=== PATIENT | female | born 1990 | race Caucasian/White ===

== ENCOUNTER 2016-05-06 19:57 | Inpatient (IN) ==
[2016-05-06] MEDS ORDERED: Naloxone 0.4 MG/ML INJ IVP PRN (20:00)
[2016-05-06] MEDS ORDERED: Ondansetron 4 MG/2 ML VIAL IVP PRN (20:00)
[2016-05-06] MEDS ORDERED: Metoclopramide 10 MG/2 ML VIAL IVP PRN (20:00)
[2016-05-06] MEDS ORDERED: Famotidine 20 MG/2 ML VIAL IVP PRN (20:00)
[2016-05-06] MEDS ORDERED: Ringers Solution, Lactated 1,000 ML IVC SCH (20:00)
[2016-05-06] MEDS ORDERED: Penicillin G Potassium 5,000,000 UNIT in D5% in Water (Mini-Bag+) 100 ML IVPB ONE (20:19)
[2016-05-06 21:22] LABS: Basophils # 0.1 K/mcL (0.0-0.2); Basophils % 0.4 %; Eosinophils # 0.2 K/mcL (0.0-0.6); Eosinophils % 1.3 %; Hematocrit 34.8 % (35.3-44.9); Hemoglobin 11.6 g/dL (11.5-15.4); Immature Granulocytes % 0.7 % (0-4); Lymphocytes # 4.8 K/mcL (0.6-4.6); Lymphocytes % 37.3 %; Mean Corpuscular HGB Conc 33.3 g/dL (31.6-35.5); Mean Corpuscular Hemoglobin 31.7 pg (28.0-33.3); Mean Corpuscular Volume 95.1 fL (83.0-100.0); Mean Platelet Volume 10.4 fL (9.4-12.4); Monocytes # 1.1 K/mcL (0.0-1.3); Monocytes % 8.4 %; Neutrophils # 6.6 K/mcL (1.6-8.9); Nucleated Red Blood Cells 0.2 /100 WBC (0); Platelet Count 362 K/mcL (140-400); Red Blood Count 3.66 M/mcL (3.82-4.97); Segmented Neutrophils % 51.9 %
--- NOTE | 2016-05-06 21:28 | Anesthesia Evaluation PreOp ---
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 Any Significant HX Other Medical History: Denies Any Significant HX, Other (ADHD) Anesthesia History: No Prior Anesthetic Complications, Past Anesthesia (appe, tonsil, sinus, uterine polyps, ovarian cyst, ectopic) : Yes (37, ) Alcohol Use: none Drug use: none Medications and Allergies Edb361/Iron Fumarate/FA/Dss [ 19 Tablet] 1 each PO DAILY 12/29/15 [ History] Dextroamphetamine/Amphetamine [Adderall 30 mg Tablet] 30 mg PO DAILY 03/18/16 [ History] Allergies ethinyl estradiol [From NuvaRing] Adverse Reaction (Verified 05/06/16 18:48) See Comments etonogestrel [From NuvaRing] Adverse Reaction (Verified 05/06/16 18:48) See Comments - Meds/Allergy Pre-op Review Medications Reviewed: Yes Allergies Reviewed: Yes Beta Blockers on Current Med List: No Anesthesia Results - Labs 05/06/16 19:46 Anesthesia Exam O2 Sat Height 1.73 m Weight 83.5 kg bp 119/68 hr 90 rr 18 Height: 68 Weight: 83 - HEENT Pupil (Motor): Pupils equal Mallampati: I Teeth: Normal Oral Opening: Greater than 3 - [employer] ELECTRICAL ENGINEER LOC: Oriented [employer] ELECT[employer]ICAL ENGINEER Motor: Normal RUE, Normal LUE, Normal RLE, Normal LLE, Normal Face [employer]ER Sensory: Normal: RUE, LUE, RLE, LLE, Face - Cardiac Rhythm: Regular Murmur: None JVD: No Carotid Bruit: No - Pulmonary Breath Sounds: bilateral Clear Respiratory Effort: Symmetrical Anesthesia Assess/Plan ASA Score: 2 Modified [place] Scale for Level of Consciousness: Cooperative, oriented, and tranquil Anesthetic Plan: Regional Monitoring Plan: Standard Monitors
[2016-05-06] MEDS ORDERED: *HR* Nalbuphine 20 MG/ML AMPUL IVP PRN (22:39)
--- NOTE | 2016-05-06 22:53 | OB/GYN History & Physical ---
Date of Encounter: 05/06/16 Time of Encounter: 22:50 Assessment and Plan (1) 38 weeks gestation of Current visit: No Status: Acute Pt presents with contractions and while undergoing observation had prolonged decel that responded to our measures. Will admit and proceed with labor. She is GBBS pos so will begin atbs cont obs and perform AROM after second dose of atb's. History of Present Illness Chief complaint: uc's HPI: Ms. Davies is a 26 year old female [id number] 1 female presents with contractions. This has been complicated by Restless leg syndrome and has been sleeping very little. She also has h/o ADD and anxiety. She smokes < 5 cigs/day. During observation she had prolonged decel to 60's for 6-7 min. She was given IVF, o2 and repositioned. Her cvx was 5/90/-2. This resolved spontaneously. Past Med Surg Social Fam HX - Past Medical History Medical history: kidney stones Psychiatric history: anxiety, depression - Past Surgical History Surgical History: appendectomy, other - Social History Smoking Status: Never smoker Smokeless Tobacco Status: No Alcohol use: none Drug use: none - Family History Mother Adopted: No Family Member Ethnicity: Non- Living Status: Still Living Hx Family Cardiac Disorders: No Hx Family Respiratory Disorders: No Hx Family Cancer: No Hx Family GI Disorders: No Hx Family Endocrine Disorder: No Hx Family Musculoskeletal Disorders: Yes (DDD) Hx Family Neuromuscular Disorders: No Hx Family Neurologic Disorders: No Hx Family HEENT Disorders: No Hx Family Autoimmune Disorders: No Obstetrical History - Pregnancies : 6 Para: 1 Ab's: 2 (ectopic 1) Medications and Allergies Unc869/Iron Fumarate/FA/Dss [ 19 Tablet] 1 each PO DAILY 12/29/15 [ History] Dextroamphetamine/Amphetamine [Adderall 30 mg Tablet] 30 mg PO DAILY 03/18/16 [ History] Allergies ethinyl estradiol [From NuvaRing] Adverse Reaction (Verified 05/06/16 18:48) See Comments etonogestrel [From NuvaRing] Adverse Reaction (Verified 05/06/16 18:48) See Comments Exam - Constitutional Constitutional: well developed - HEENT HEENT: EOMI, PERRL - Neck Neck exam: full ROM - Lungs Respiratory exam: CTAB - Cardiovascular Cardiovascular exam: RRR - Abdomen Abdomen: Present: gravid, non tender - Cervix Dilation: 5 Effacement: 80 Station: -1 - Uterus Uterus exam: Present: enlarged Results Result Diagrams: 05/06/16 19:46 Abnormal lab results WBC 12.8 K/mcL (4.3-11.1) H 05/06/16 19:46 RBC 3.66 M/mcL (3.82-4.97) L 05/06/16 19:46 Hct 34.8 % (35.3-44.9) L 05/06/16 19:46 Lymphocytes # 4.8 K/mcL (0.6-4.6) H 05/06/16 19:46 Nucleated RBCs/100 WBC 0.2 /100 WBC (0) H 05/06/16 19:46 All other labs normal. - VTE Reasons for not Prescribing Prophylaxis: Treatment not Indicated - Low risk for VTE
[2016-05-07] MEDS ORDERED: Penicillin G Potassium 2,500,000 UNIT in D5% in Water 100 ML IVPB SCH (01:00)
--- NOTE | 2016-05-07 03:09 | OB Labor Progress Note ---
Date of Encounter: 05/07/16 Time of Encounter: 03:07 Labor Progress Note - Subjective Subjective: pt doing well, c/o moderate intensity uc's - Cervix Cervix: 5/80/-2 - Heart Tones Heart Tones: RNST - Wrigley Wrigley: uc's q 3 - Interventions Interventions: AROM clear - Plan Plan: Expect
[2016-05-07] MEDS ORDERED: *HR* FentaNYL (PF) 100 MCG/2 ML VIAL ONE ×2 (05:54→08:00)
[2016-05-07] MEDS ORDERED: Epidural Premix (fent/bupiv) 110 ML EP ONE (05:54)
[2016-05-07] MEDS ORDERED: Bupivacaine-MPF 0.25% 10 ML VIAL ONE ×2 (05:54→08:00)
[2016-05-07] MEDS ORDERED: *HR* FentaNYL (PF) 100 MCG/2 ML VIAL EP ONE (06:18)
[2016-05-07] MEDS ORDERED: EPHEDrine 50 MG/ML VIAL IVP PRN (06:18)
[2016-05-07] MEDS ORDERED: Bupivacaine-MPF 0.25% 10 ML VIAL EP ONE (06:18)
--- NOTE | 2016-05-07 06:22 | Anesthesia Procedures ---
Date of Encounter: 05/07/16 Time of Encounter: 05:50 Procedures: Anesthesia - Epidural/Spinal Patient ID/Chart reviewed: Yes Patient examined: Yes OB Eval: Gestational age: 37 OB Eval: Contractions: Non-stressed pattern Consent Obtained: Yes Supplemental Oxygen: None/Room Air Site Prep: Aseptic Technique, 0.5% Chlorhexidine/Alcohol Patient position: upright Local Anesthetic: Lidocaine 1% Amount of Local Anesthetic used: 3 Touhy Needle Gauge: 18 Touhy Needle Depth (cm): 5 Catheter Depth at Skin (cm): 11 Test Dose (1.5% Lido + Epi): Volume given (mls): 3 Test Dose Result: Negative Loading Dose: 0.25% Marcaine (mls): 5 Loading Dose: Fentanyl (mcg): 100 Loading Dose: Other: 3ml nss Loading Dose Administered: Thru Touhy Needle Infusion Med: 0.125% Bupivacaine w/ 2 mcg/ml Fentanyl Infusion Rate (mls/hr): [address]: Tegaderm Interspace Used: L2-L3 Loss of Resistance (MARIANNA): Yes Blood: No CSF: No Paresthesia: No Procedure: strict asepsis, no change in fhr Vitals + FHT's: 127/76 123/65 112/67
[2016-05-07] MEDS ORDERED: Epidural Premix (fent/bupiv) 110 ML EP SCH (06:30)
[2016-05-07] MEDS: Oxytocin 20 units/ LR 1000 mL 20 UNIT/1,000 ML BAG IVC SCH ×2 (08:42→13:43)
--- NOTE | 2016-05-07 09:08 | Anesthesia Progress Note ---
Date of Encounter: 05/07/16 Time of Encounter: 08:10 Anesthesia Note - Note Note: 05/07/16 09:06 Called to LDR 10 for c/o pain with contractions, rates 10/10/ Epidural functioning and no evidence of migration. Dosed with 8ml 0.25% bupivacaine and 100mcg fentanyl in 3 divided doses. Patient tolerated procedure well and vss.
[2016-05-07] MEDS ORDERED: Ibuprofen 600 MG TABLET PO PRN (13:52)
[2016-05-07] MEDS ORDERED: *HR* HYDROcodone/Acet 5/325 mg TABLET PO PRN (13:52)
[2016-05-07] MEDS ORDERED: Oxytocin 20 units/ LR 1000 mL 20 UNIT/1,000 ML BAG IVC ONE (13:52)
[2016-05-07] MEDS ORDERED: Oxytocin 20 units/ LR 1000 mL 20 UNIT/1,000 ML BAG IV SCH (14:00)
[2016-05-08 05:49] LABS: Basophils # 0.1 K/mcL (0.0-0.2); Basophils % 0.5 %; Eosinophils # 0.3 K/mcL (0.0-0.6); Eosinophils % 2.2 %; Hematocrit 28.6 % (35.3-44.9); Immature Granulocytes % 0.6 % (0-4); Lymphocytes # 5.1 K/mcL (0.6-4.6); Lymphocytes % 41.3 %; Mean Corpuscular HGB Conc 33.6 g/dL (31.6-35.5); Mean Corpuscular Hemoglobin 31.8 pg (28.0-33.3); Mean Corpuscular Volume 94.7 fL (83.0-100.0); Monocytes % 8.2 %; Neutrophils # 5.8 K/mcL (1.6-8.9); Platelet Count 308 K/mcL (140-400); Red Blood Count 3.02 M/mcL (3.82-4.97); Segmented Neutrophils % 47.2 %
[2016-05-08 05:50] LABS: Hemoglobin 9.6 g/dL (11.5-15.4)
[2016-05-08 08:52] VITALS: BP 123/85
[2016-05-08] MEDS ORDERED: Prenatal Vit/FA 1 EACH TABLET PO SCH (09:00)
--- NOTE | 2016-05-08 09:03 | Discharge Summary ---
Date of Encounter: 05/08/16 Time of Encounter: 09:02 - Discharge Diagnosis (1) 38 weeks gestation of Priority: Secondary Status: Acute (2) (normal spontaneous vaginal delivery) Priority: Primary Status: Acute - Discharge Medications Prescriptions: Ibuprofen [Motrin] 600 mg PO Q6HR PRN #40 tablet PRN Reason: Cramping Home Medications: Ibc605/Iron Fumarate/FA/Dss [ 19 Tablet] 1 each PO DAILY 12/29/15 [ History] Dextroamphetamine/Amphetamine [Adderall 30 mg Tablet] 30 mg PO DAILY 03/18/16 [ History] Ibuprofen [Motrin] 600 mg PO Q6HR PRN #40 tablet 05/08/16 [Rx] Allergies/Adverse Reactions: Allergies ethinyl estradiol [From NuvaRing] Adverse Reaction (Verified 05/06/16 18:48) See Comments etonogestrel [From NuvaRing] Adverse Reaction (Verified 05/06/16 18:48) See Comments Data Procedures and tests throughout hospitalization: Laboratory Tests 05/06/16 05/08/16 19:46 05:35 WBC 12.8 H 12.3 H RBC 3.66 L 3.02 L Hgb 11.6 9.6 L D Hct 34.8 L 28.6 L MCV 95.1 94.7 MCH 31.7 31.8 MCHC 33.3 33.6 RDW 13.0 13.0 Plt Count 362 308 MPV 10.4 10.0 Immature Gran % 0.7 0.6 Seg Neutrophils % 51.9 47.2 Lymphocytes % 37.3 41.3 Monocytes % 8.4 8.2 Eosinophils % 1.3 2.2 Basophils % 0.4 0.5 Neutrophils # 6.6 5.8 Lymphocytes # 4.8 H 5.1 H Monocytes # 1.1 1.0 Eosinophils # 0.2 0.3 Basophils # 0.1 0.1 Nucleated RBCs/100 WBC 0.2 H Labs on day of discharge: Labs from last 24 hours 05/08/16 05:35 WBC 12.3 H RBC 3.02 L Hgb 9.6 L D Hct 28.6 L MCV 94.7 MCH 31.8 MCHC 33.6 RDW 13.0 Plt Count 308 MPV 10.0 Immature Gran % 0.6 Seg Neutrophils % 47.2 Lymphocytes % 41.3 Monocytes % 8.2 Eosinophils % 2.2 Basophils % 0.5 Neutrophils # 5.8 Lymphocytes # 5.1 H Monocytes # 1.0 Eosinophils # 0.3 Basophils # 0.1 - Impressions Doing great without c/o. Appropriate lochia and cramping. Date of admission: 05/06/16 19:57 Consults: 05/07/16 13:52 Consult to [employer] [CONS] Routine Comment: Vaginal delivery, consult needed - Patient Status Disposition: Home, Self-Care Condition: Good Functional capacity at discharge: independent ambulation Overall status at discharge: patient is back to baseline - Discharge Instructions Follow Up With: Ancelmo Park MD [Partnered Physician] - - Diet and Activity Activity: ambulate only with your walker Diet: advance to your usual diet Hospital Course BENEFITS REPRESENTATIVE Time Attestation: Total time spent providing and/or coordinating discharge services: Exam - Constitutional Vitals: Temp Pulse Resp BP Pulse Ox 98.0 F 93 20 123/85 97 05/08/16 08:51 05/08/16 08:51 05/08/16 08:51 05/08/16 08:51 05/08/16 02:15 General appearance IM: A&O X 3 - Respiratory Respiratory exam: Present: CTAB - Cardiovascular Cardiovascular exam IM: Present: RRR - GI/Abdominal GI/Abdominal exam IM: normal bowel sounds - Extremities Exam Extremities exam IM: Present: full ROM - Neurological Exam Neurological exam: oriented X3 - VTE Reasons for not Prescribing Prophylaxis: Treatment not Indicated - Low risk for VTE
--- NOTE | 2016-05-13 18:23 | OB/GYN Procedure Note ---
Delivery - Delivery Date: 05/07/16 Provider: Ancelmo Park Intrapartum events: none Delivery induction: AROM Delivery augmentation: pitocin Estimated Blood Loss: 250 - (s) A Delivery Date: 05/07/16 Delivery Time: 10:38 Presentation: vertex Position: MARCELA Gender: Female Viability: Viable Weight Gram: 3340 kg at 1 minute: 8 at 5 mins: 9 Shoulder Dystocia: not encountered Specimens collected: cord blood Placenta: spontaneous Cord: 3 umbilical vessels - Repair Episiotomy: none Laceration Description: Superficial - Complications Delivery complications: none - Disposition Mom disposition: stable in LDR [place] disposition: stable in LDR - Comments Comments: Pt s/p without complication. Spontaneous delivery of normal placenta with 3 vc. No complications, mother and recovered in LDR.
== END 2016-05-08 12:45 | disposition home or self-care (01) | DRG 560 ==
LOC: 1NENULAB → 1NENUOBS 05-07 13:44
PROVIDERS: ADMIT Obstetrics & Gynecology; ATTEND Obstetrics & Gynecology

== ENCOUNTER 2019-01-07 19:18 | Observation (INO) ==
[2019-01-07] MEDS ORDERED: 0.9 % Sodium Chloride 1,000 ML IVC ONE ×2 (19:34→22:22)
[2019-01-07] MEDS ORDERED: *HR* LORazepam 2 MG/ML VIAL IVP ONE (19:34)
[2019-01-07] MEDS ORDERED: Isovue-370 500 ML BOTTLE IVP ONE (19:35)
--- NOTE | 2019-01-07 19:36 | Emergency Department Note ---
Disposition Clinical Impression: Acute anxiety, Tachycardia, Hypokalemia Acute pulmonary embolus Qualifiers: Pulmonary embolism type: unspecified Acute cor pulmonale presence: without acute cor pulmonale Qualified Code(s): I26.99 - Other pulmonary embolism without acute cor pulmonale Disposition: Admitted As Inpatient Condition: Fair Time of Disposition: 01:09 General Adult HPI - General Chief complaint: ED Psychiatric Symptoms Stated complaint: anxiety Time Seen by Provider: 01/07/19 19:20 Source: patient, EMS Mode of arrival: EMS Limitations: no limitations Nursing Notes Reviewed: Yes Vital Signs Reviewed: Yes - History of Present Illness HPI Narrative: Patient is a 28-year-old female presenting with altered mentation. Patient has known history of anxiety and depression, currently on Adderall and fluoxetine. Patient states that just prior to arrival, she was in her kitchen cooking, she felt her heart start racing, began to have chest discomfort, her arms locked up and she fell to the ground, she does not believe that she hit her head or loss consciousness. She is not on any anticoagulation medicines. Patient family then called EMS, upon their arrival, patient had difficulty speaking secondary to feeling short of breath and the chest pain, she was noted to have her arms locked to her side, and her toes were curled, patient states that this is never happened to her before, has no history of similar episodes. On arrival to our ER, patient is alert and oriented 3, she is able to verbalize herself although somewhat pressured in speech, she has her arms to her side with her hands contracted, her legs are appropriate, patient has a patent airway, clear to auscultation bilaterally, +2 pulses throughout the upper and lower extremities. She is able to verbalize herself, however is breathing rapidly, she will follow directions, no focal neurological deficits, no numbness and tingling. She denies any nausea, vomiting or abdominal pain. She states she h as continued to have palpitations. She denies any alcohol or drug use. She states she had been prescribed Ativan in the past, however has not taken this for quite some time. She did increase her Adderall dose one month ago per her family doctor from 20 mg twice per day to 25 mg twice per day. Pain Scale: 10 - Related Data Home Medications Medication Instructions Recorded Confirmed Dextroamphetamine/Amphetamine 40 mg PO DAILY 03/05/18 03/05/18 [Adderall Xr 20 mg Capsule] LORazepam [Ativan] 1 mg PO HS PRN 03/05/18 03/05/18 Norgestimate-Ethinyl Estradiol 1 tab PO DAILY 03/05/18 03/05/18 [Ortho-Cyclen 28 Tablet] Previous Rx's Medication Instructions Recorded Ibuprofen [Motrin] 600 mg PO Q6HR PRN #40 tab 03/05/18 Allergies Allergy/AdvReac Type Severity Reaction Status Date / Time ethinyl estradiol AdvReac See Verified 03/05/18 14:02 [From NuvaRing] Comments etonogestrel [From NuvaRing] AdvReac See Verified 03/05/18 14:02 Comments All systems ED: reviewed and negative except as stated. Review of Systems: As Per HPI Constitutional: Denies: fever, chills ENT ED: Denies: congestion Cardiovascular: Reports: chest pain, palpitations. Denies: dyspnea on exertion, syncope Respiratory: Denies: cough, dyspnea, wheezes Gastrointestinal: Denies: abdominal pain, nausea, vomiting Genitourinary: Denies: dysuria Musculoskeletal: Denies: back pain Integumentary: Denies: rash Neurological: Reports: as per HPI. Denies: headache Psychiatric: Reports: anxiety, depression. 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 Absent: scleral icterus, miosis, mydriasis - ENT ENT exam: mucous membranes moist - Neck Neck exam: Present: normal inspection, trachea midline. Absent: tenderness, lymphadenopathy, thyromegaly - Chest Chest inspection: Present: normal inspection, symmetric chest wall rise. Absen t: tenderness - Respiratory Respiratory exam: Present: normal lung sounds bilaterally. Absent: respiratory distress, wheezes, accessory muscle use, prolonged expiratory phase - Cardiovascular Cardiovascular exam: Present: normal rhythm, tachycardia - Abdominal Exam Abdominal exam: Present: soft, Non-Tender. Absent: tenderness, distention, guarding, rebound, rigidity - Extremities Exam Extremities exam: Present: normal inspection, full ROM, normal capillary refill. Absent: tenderness, joint swelling, calf tenderness - Expanded Lower Extremity Exam Neurovascular/Tendon exam: Absent: motor deficit, sensory deficit, tendon deficit - Back Exam Back exam: Present: normal inspection, full ROM. Absent: tenderness - Neurological Exam Neurological exam: Present: alert, oriented X3, CN II-XII intact, reflexes normal. Absent: motor sensory deficit - Expanded Neurological Exam Patient oriented to: Present: person, place, time Speech: Present: fluid speech Cranial nerves: EOM function (II, III, IV, ): Normal, facial sensation (V): Normal, facial palsy (VII): Normal, spinal accessory function (XI): Normal, tongue deviation (XII): Normal Cerebellar function: finger to nose: Normal, heel to de dios: Normal Motor strength - LUE: 5/5 Motor strength - RUE: 5/5 Motor strength - LLE: 5/5 Motor strength - RLE: 5/5 Upper motor neuron exam: jez neglect: Absent bilaterally, pronator drift: Absent bilaterally Sensory exam upper extremity: light touch: Normal Sensory exam lower extremity: light touch: Normal DTR: patellar (L): 2+, patellar (R): 2+, Achilles tendon (L): 2+, Achilles tendon (R): 2+ Coma Scale Eye Opening: Spontaneous Coma Scale Motor Response: Obeys Commands Coma Scale Verbal Response: Oriented Coma Scale Total: 15 - Psychiatric Psychiatric exam: Present: anxious - Skin Skin exam: Present: warm, dry, intact. Absent: rash, diaphoresis, erythema, pallor, mottled Course Vital Signs Temperature 98.4 F 01/07/19 19:22 Pulse Rate 127 01/07/19 19:22 Respiratory Rate 60 01/07/19 19:22 Blood Pressure 127/100 01/07/19 19:22 O2 Sat by Pulse Oximetry 99 01/07/19 19:22 Temperature 98.4 F 01/07/19 19:22 Pulse Rate 105 01/08/19 00:32 Respiratory Rate 16 01/08/19 00:32 Blood Pressure 129/94 01/08/19 00:32 O2 Sat by Pulse Oximetry 96 01/08/19 00:32 Oxygen Delivery Oxygen Delivery Room Air Medical Decision Making - MDM Narrative Medical decision making narrative: Patient is a 28-year-old female who is presenting with acute onset palpitations, shortness of breath and altered mentation. Patient is brought in via EMS with initial vital signs show a tachycardia with normal blood pressure. Patient is afebrile. On initial examination, patient has her hands by her side, with her hands contracted however with prompting, she is able to move all extremities and digits, without difficulty, she also has somewhat pressured speech but is able to describe what happened today, has no specific neurological or vascular abnormalities on examination. Initial concern for possible cardiac versus pulmonary etiology, neurological changes could be indicative of intracranial changes. Laboratory work including CBC, BMP, electrolytes, magnesium, TSH, troponin, EKG, chest x-ray, CTA and CT of the head are performed. CBC is relatively unremarkable. BMP does show hypokalemia, this is replaced with 40 once of potassium. Magnesium, TSH and troponin are all within normal limits. EKG shows no acute ischemic changes with a ventricular rate of 122, regular rhythm, minimal right axis deviation, with possible right atrial enlargement. Chest x-ray shows no acute abnormalities. CTA does show a left upper lobe segmental pulmonary embolism, she was started on heparin drip for this. CT of the head shows no acute abnormalities. Patient did have multiple additional episodes, where she would stare off and not respond to questioning, however after the incident, patient states that she recalls the entire episode, ciliary response was attempted, and she did not respond, however when she came out of these episodes a few moments later, she states that she was able to feel my touch and knew that I was coming close to her eye however she was did not feel as though she was able to blink. During these times she had no change in her vital signs. Given patient's hypokalemia and pulmonary malaise and, patient will be admitted for further observation and treatment. - Medical Records Medical records reviewed: Yes I reviewed the patient's medical records. - Lab Data Lab results reviewed: Yes I reviewed the patient's lab results. Result diagrams: 01/07/19 22:44 01/07/19 18:48 Lab Results 01/07/19 01/07/19 01/07/19 Range/Units 18:48 18:48 18:48 WBC 13.0 H (4.3-11.1) K/mcL RBC 4.26 (3.82-4.97) M/mcL Hgb 15.2 (11.5-15.4) g/dL Hct 42.2 (35.3-44.9) % MCV 99.1 (83.0-100.0) fL MCH 35.7 H (28.0-33.3) pg MCHC 36.0 H (31.6-35.5) g/dL RDW 12.4 (11.5-14.5) % Plt Count 262 (140-400) K/mcL MPV 9.3 L (9.4-12.4) fL Immature Gran % 0.5 (0-4) % Seg Neutrophils % 44.4 % Lymphocytes % 45.8 % Monocytes % 5.8 % Eosinophils % 2.9 % Basophils % 0.6 % Neutrophils # 5.8 (1.6-8.9) K/mcL Lymphocytes # 5.9 H (0.6-4.6) K/mcL Monocytes # 0.8 (0.0-1.3) K/mcL Eosinophils # 0.4 (0.0-0.6) K/mcL Basophils # 0.1 (0.0-0.2) K/mcL Immature Plt Fraction (1.1-6.1) % PT (9.4-12.1) Seconds INR Heparin Anti-Xa, Unfract (0.30-0.70) IU/mL Sample Site ABG pH (7.32-7.45) pH Units ABG pCO2 (35-45) mmHg ABG pO2 (85-104) mmHg ABG HCO3 (21-27) mEq/L ABG Total CO2 (20-26) mEq/L ABG O2 Saturation (95-98) % ABG Base Excess (-2 to 3) mEq/L López Test Blood Gas Modality Inspired O2 (1-15=lpm [id number]=%) Sodium 140 (136-145) mEq/L Potassium 2.8 L (3.5-5.1) mEq/L Chloride 108 H (98-107) mEq/L Carbon Dioxide 14 L (23-29) mEq/L BUN 4 L (6-20) mg/dL Creatinine 0.61 (0.60-1.20) mg/dL Est GFR ( Amer) > 60 (> 60) Est GFR (Non-Af Amer) > 60 (> 60) BUN/Creatinine Ratio 7 (6-26) Glucose 106 H (70-105) mg/dL POC Glucose (70-99) mg/dL Calculated Osmolality 287 (280-300) Calcium 9.0 (8.6-10.3) mg/dL Magnesium 1.9 (1.6-2.6) mg/dL Total Bilirubin 0.4 (0.3-1.0) mg/dL Direct Bilirubin 0.1 (0.0-0.2) mg/dL Indirect Bilirubin 0.3 (0.0-1.2) mg/dL AST 32 (13-39) Units/L ALT 40 (7-52) Units/L Alkaline Phosphatase 44 (34-104) Units/L Ammonia 40 (16-53) mcmol/L Creatine Kinase 75 (30-223) Units/L Troponin I < 0.03 (< 0.04) ng/mL Serum Total Protein 7.0 (6.4-8.9) g/dL Albumin 4.4 (3.5-5.7) g/dL Globulin 2.6 (2.4-3.5) g/dL Albumin/Globulin Ratio 1.7 (1.1-2.2) TSH 5.587 (0.340-5.600) mcIU/mL Urine Color (Yellow) Urine Clarity (Clear) Urine pH (5.0-8.0) pH Units Ur Specific [place] (1.010-1.025) Urine Protein (Neg-Trace) mg/dL Urine Glucose (UA) (Normal) mg/dL Urine Ketones (Negative) mg/dL Urine Blood (Negative) Urine Nitrite (Negative) Urine Bilirubin (Negative) Urine Urobilinogen (Normal) mg/dL Ur Leukocyte Esterase (Negative) Urine Microscopic RBC (0-3) per hpf Urine Microscopic WBC (0-3) per hpf Ur Squamous Epith Cells (None-Few) per lpf Urine Bacteria (None-Few) per hpf Hyaline Casts (None-Few) per lpf Ur Culture Indicated? (NO) Urine Opiates Screen (Rnddsf=306) ng/mL Ur Buprenorphine Scrn (Cutoff=5) ng/mL Ur Barbiturates Screen (Ibocwe=278) ng/mL Ur Phencyclidine Scrn (Cutoff=25) ng/mL Ur Amphetamines Screen (Ajlxmy=6198) ng/mL U Benzodiazepines Scrn (Vyhslu=429) ng/mL Urine Cocaine Screen (Cutoff= 300) ng/mL U Marijuana (THC) Screen (Cutoff = 50) ng/mL Ur Drug Screen Interp Ethyl Alcohol 143 H (Less than 10) mg/dL 01/07/19 01/07/19 01/07/19 Range/Units 19:32 20:35 20:35 WBC (4.3-11.1) K/mcL RBC (3.82-4.97) M/mcL Hgb (11.5-15.4) g/dL Hct (35.3-44.9) % MCV (83.0-100.0) fL MCH (28.0-33.3) pg MCHC (31.6-35.5) g/dL RDW (11.5-14.5) % Plt Count (140-400) K/mcL MPV (9.4-12.4) fL Immature Gran % (0-4) % Seg Neutrophils % % Lymphocytes % % Monocytes % % Eosinophils % % Basophils % % Neutrophils # (1.6-8.9) K/mcL Lymphocytes # (0.6-4.6) K/mcL Monocytes # (0.0-1.3) K/mcL Eosinophils # (0.0-0.6) K/mcL Basophils # (0.0-0.2) K/mcL Immature Plt Fraction (1.1-6.1) % PT (9.4-12.1) Seconds INR Heparin Anti-Xa, Unfract (0.30-0.70) IU/mL Sample Site ABG pH (7.32-7.45) pH Units ABG pCO2 (35-45) mmHg ABG pO2 (85-104) mmHg ABG HCO3 (21-27) mEq/L ABG Total CO2 (20-26) mEq/L ABG O2 Saturation (95-98) % ABG Base Excess (-2 to 3) mEq/L López Test Blood Gas Modality Inspired O2 (1-15=lpm [id number]=%) Sodium (136-145) mEq/L Potassium (3.5-5.1) mEq/L Chloride (98-107) mEq/L Carbon Dioxide (23-29) mEq/L BUN (6-20) mg/dL Creatinine (0.60-1.20) mg/dL Est GFR ( Amer) (> 60) Est GFR (Non-Af Amer) (> 60) BUN/Creatinine Ratio (6-26) Glucose (70-105) mg/dL POC Glucose 103 H (70-99) mg/dL Calculated Osmolality (280-300) Calcium (8.6-10.3) mg/dL Magnesium (1.6-2.6) mg/dL Total Bilirubin (0.3-1.0) mg/dL Direct Bilirubin (0.0-0.2) mg/dL Indirect Bilirubin (0.0-1.2) mg/dL AST (13-39) Units/L ALT (7-52) Units/L Alkaline Phosphatase (34-104) Units/L Ammonia (16-53) mcmol/L Creatine Kinase (30-223) Units/L Troponin I (< 0.04) ng/mL Serum Total Protein (6.4-8.9) g/dL Albumin (3.5-5.7) g/dL Globulin (2.4-3.5) g/dL Albumin/Globulin Ratio (1.1-2.2) TSH (0.340-5.600) mcIU/mL Urine Color Yellow (Yellow) Urine Clarity Clear (Clear) Urine pH 6.5 (5.0-8.0) pH Units Ur Specific [place] 1.010 (1.010-1.025) Urine Protein Negative (Neg-Trace) mg/dL Urine Glucose (UA) Normal (Normal) mg/dL Urine Ketones Trace H (Negative) mg/dL Urine Blood Trace H (Negative) Urine Nitrite Negative (Negative) Urine Bilirubin Negative (Negative) Urine Urobilinogen Normal (Normal) mg/dL Ur Leukocyte Esterase Negative (Negative) Urine Microscopic RBC 0-3 (0-3) per hpf Urine Microscopic WBC 0-3 (0-3) per hpf Ur Squamous Epith Cells Moderate H (None-Few) per lpf Urine Bacteria None Seen (None-Few) per hpf Hyaline Casts None Seen (None-Few) per lpf Ur Culture Indicated? NO (NO) Urine Opiates Screen Negative (Ogurfv=783) ng/mL Ur Buprenorphine Scrn Negative (Cutoff=5) ng/mL Ur Barbiturates Screen Negative (Axnntz=759) ng/mL Ur Phencyclidine Scrn Negative (Cutoff=25) ng/mL Ur Amphetamines Screen Positive H (Fdllxz=4361) ng/mL U Benzodiazepines Scrn Negative (Gjyvxj=456) ng/mL Urine Cocaine Screen Negative (Cutoff= 300) ng/mL U Marijuana (THC) Screen Negative (Cutoff = 50) ng/mL Ur Drug Screen Interp See Below Ethyl Alcohol (Less than 10) mg/dL 01/07/19 01/07/19 01/07/19 Range/Units 20:50 22:44 22:44 WBC 8.6 (4.3-11.1) K/mcL RBC 4.05 (3.82-4.97) M/mcL Hgb 14.1 (11.5-15.4) g/dL Hct 39.7 (35.3-44.9) % MCV 98.0 (83.0-100.0) fL MCH 34.8 H (28.0-33.3) pg MCHC 35.5 (31.6-35.5) g/dL RDW 12.3 (11.5-14.5) % Plt Count 247 (140-400) K/mcL MPV 9.2 L (9.4-12.4) fL Immature Gran % (0-4) % Seg Neutrophils % % Lymphocytes % % Monocytes % % Eosinophils % % Basophils % % Neutrophils # (1.6-8.9) K/mcL Lymphocytes # (0.6-4.6) K/mcL Monocytes # (0.0-1.3) K/mcL Eosinophils # (0.0-0.6) K/mcL Basophils # (0.0-0.2) K/mcL Immature Plt Fraction 1.8 (1.1-6.1) % PT 11.9 (9.4-12.1) Seconds INR 1.0 Heparin Anti-Xa, Unfract 0.01 L (0.30-0.70) IU/mL Sample Site R Radial ABG pH 7.40 (7.32-7.45) pH Units ABG pCO2 33 L (35-45) mmHg ABG pO2 81 L (85-104) mmHg ABG HCO3 20 L (21-27) mEq/L ABG Total CO2 21 (20-26) mEq/L ABG O2 Saturation 96 (95-98) % ABG Base Excess -4 L (-2 to 3) mEq/L López Test Positive Blood Gas Modality RA Inspired O2 21.0 (1-15=lpm [id number]=%) Sodium (136-145) mEq/L Potassium (3.5-5.1) mEq/L Chloride (98-107) mEq/L Carbon Dioxide (23-29) mEq/L BUN (6-20) mg/dL Creatinine (0.60-1.20) mg/dL Est GFR ( Amer) (> 60) Est GFR (Non-Af Amer) (> 60) BUN/Creatinine Ratio (6-26) Glucose (70-105) mg/dL POC Glucose (70-99) mg/dL Calculated Osmolality (280-300) Calcium (8.6-10.3) mg/dL Magnesium (1.6-2.6) mg/dL Total Bilirubin (0.3-1.0) mg/dL Direct Bilirubin (0.0-0.2) mg/dL Indirect Bilirubin (0.0-1.2) mg/dL AST (13-39) Units/L ALT (7-52) Units/L Alkaline Phosphatase (34-104) Units/L Ammonia (16-53) mcmol/L Creatine Kinase (30-223) Units/L Troponin I (< 0.04) ng/mL Serum Total Protein (6.4-8.9) g/dL Albumin (3.5-5.7) g/dL Globulin (2.4-3.5) g/dL Albumin/Globulin Ratio (1.1-2.2) TSH (0.340-5.600) mcIU/mL Urine Color (Yellow) Urine Clarity (Clear) Urine pH (5.0-8.0) pH Units Ur Specific [place] (1.010-1.025) Urine Protein (Neg-Trace) mg/dL Urine Glucose (UA) (Normal) mg/dL Urine Ketones (Negative) mg/dL Urine Blood (Negative) Urine Nitrite (Negative) Urine Bilirubin (Negative) Urine Urobilinogen (Normal) mg/dL Ur Leukocyte Esterase (Negative) Urine Microscopic RBC (0-3) per hpf Urine Microscopic WBC (0-3) per hpf Ur Squamous Epith Cells (None-Few) per lpf Urine Bacteria (None-Few) per hpf Hyaline Casts (None-Few) per lpf Ur Culture Indicated? (NO) Urine Opiates Screen (Sanwhz=220) ng/mL Ur Buprenorphine Scrn (Cutoff=5) ng/mL Ur Barbiturates Screen (Mftkqr=914) ng/mL Ur Phencyclidine Scrn (Cutoff=25) ng/mL Ur Amphetamines Screen (Hwhxdo=5103) ng/mL U Benzodiazepines Scrn (Ainrmv=542) ng/mL Urine Cocaine Screen (Cutoff= 300) ng/mL U Marijuana (THC) Screen (Cutoff = 50) ng/mL Ur Drug Screen Interp Ethyl Alcohol (Less than 10) mg/dL - Radiology Data Radiology results reviewed: Yes I reviewed the patient's radiology results. Chest X-Ray 01/07/19 19:34 IMPRESSION: Bibasilar atelectasis or scarring. D/ / Dania Wiley Cha, MD / Dania Wiley Cha, MD Interpreting Provider: Dania Wiley Cha, MD Chest CTA 01/07/19 19:35 IMPRESSION: Embolism within the pulmonary artery supplying the anterior segment of left upper lobe. Findings were discussed with Lesli Pacheco at 10:03 pm on 01/07/2019. D/ / Dania Wiley Cha, MD / Dania Wiley Cha, MD Interpreting Provider: Dania Wiley Cha, MD Head CT 01/07/19 19:35 IMPRESSION: No acute intracranial abnormality. D/ / Dania Wiley Cha, MD / Dania Wiley Cha, MD Interpreting Provider: Dania Wiley Cha, MD
[2019-01-07 20:01] LABS: Basophils # 0.1 K/mcL (0.0-0.2); Basophils % 0.6 %; Eosinophils # 0.4 K/mcL (0.0-0.6); Eosinophils % 2.9 %; Hematocrit 42.2 % (35.3-44.9); Hemoglobin 15.2 g/dL (11.5-15.4); Immature Granulocytes % 0.5 % (0-4); Lymphocytes # 5.9 K/mcL (0.6-4.6); Lymphocytes % 45.8 %; Mean Corpuscular Hemoglobin 35.7 pg (28.0-33.3); Mean Corpuscular Volume 99.1 fL (83.0-100.0); Mean Platelet Volume 9.3 fL (9.4-12.4); Monocytes # 0.8 K/mcL (0.0-1.3); Monocytes % 5.8 %; Neutrophils # 5.8 K/mcL (1.6-8.9); Platelet Count 262 K/mcL (140-400); Red Blood Count 4.26 M/mcL (3.82-4.97); Red Cell Distribution Width 12.4 % (11.5-14.5); Segmented Neutrophils % 44.4 %
[2019-01-07 20:24] LABS: Alanine Aminotransferase 40 Units/L (7-52); Albumin 4.4 g/dL (3.5-5.7); Albumin/Globulin Ratio 1.7 (1.1-2.2); Alkaline Phosphatase 44 Units/L (34-104); Aspartate Amino Transferase 32 Units/L (13-39); BUN/Creatinine Ratio 7 (6-26); Bilirubin,Direct 0.1 mg/dL (0.0-0.2); Bilirubin,Indirect 0.3 mg/dL (0.0-1.2); Bilirubin,Total 0.4 mg/dL (0.3-1.0); Blood Urea Nitrogen 4 mg/dL (6-20); Carbon Dioxide 14 mEq/L (23-29); Chloride 108 mEq/L (98-107); Creatine Kinase 75 Units/L (30-223); Ethanol 143 mg/dL (Less than 10); Globulin 2.6 g/dL (2.4-3.5); Glucose 106 mg/dL (70-105); Magnesium 1.9 mg/dL (1.6-2.6); Osmolality,Calculated 287 (280-300); Potassium 2.8 mEq/L (3.5-5.1); Sodium 140 mEq/L (136-145); Troponin I < 0.03 ng/mL (< 0.04); eGFR For African Americans > 60 (> 60); eGFR For Non-African Americans > 60 (> 60)
[2019-01-07] MEDS ORDERED: Potassium Chloride Elixir 20 MEQ/15 ML UDC PO ONE (20:25)
[2019-01-07 20:37] LABS: Thyroid Stimulating Hormone 5.587 mcIU/mL (0.340-5.600)
[2019-01-07 20:49] LABS: Bilirubin,Urine Negative (Negative); Blood,Urine Trace (Negative); Clarity,Urine Clear (Clear); Color,Urine Yellow (Yellow); Glucose,Urine (UA) Normal (Normal); Ketones,Urine Trace mg/dL (Negative); Leukocyte Esterase,Urine Negative (Negative); Nitrite,Urine Negative (Negative); PH,Urine 6.5 pH Units (5.0-8.0); Protein,Urine Negative (Neg-Trace); Urobilinogen,Urine Normal (Normal)
[2019-01-07 20:52] LABS: Bacteria,Urine None Seen per hpf (None-Few); Hyaline Casts,Urine None Seen per lpf (None-Few); RBC,Urine 0-3 per hpf (0-3); Squamous Epithelial Cell,Urine Moderate per lpf (None-Few); WBC,Urine 0-3 per hpf (0-3)
[2019-01-07 20:53] LABS: ABG Base Excess -4 mEq/L (-2 to 3); ABG HCO3 20 mEq/L (21-27); ABG Oxygen Saturation 96 % (95-98); ABG PCO2 33 mmHg (35-45); ABG PO2 81 mmHg (85-104); ABG TCO2 21 mEq/L (20-26); Blood Gas Modality RA
[2019-01-07 21:04] LABS: Amphetamine Screen,Urine Positive ng/mL (Cutoff=1000); Barbiturate Screen,Urine Negative ng/mL (Cutoff=200); Benzodiazepines Screen,Urine Negative ng/mL (Cutoff=200); Cannabinoid Screen,Urine Negative ng/mL (Cutoff = 50); Cocaine Screen,Urine Negative ng/mL (Cutoff= 300); Opiate Screen,Urine Negative ng/mL (Cutoff=300); Phencyclidine Screen,Urine Negative ng/mL (Cutoff=25)
[2019-01-07] MEDS ORDERED: Ondansetron 4 MG/2 ML VIAL IVP ONE (21:12)
[2019-01-07] MEDS ORDERED: *HR* Heparin 5,000 UNIT/ML VIAL IVP ONE (22:04)
[2019-01-07] MEDS ORDERED: *HR* Heparin 5,000 UNIT/ML VIAL IVP PRN ×2 (22:04)
[2019-01-07] MEDS ORDERED: Heparin 25,000 UNIT/250 ML D5W 25,000 UNIT/250 ML IV.SOLN IVC SCH (22:15)
--- NOTE | 2019-01-07 22:33 | Emergency Department Note ---
Disposition Clinical Impression: Acute anxiety, Acute pulmonary embolus, Tachycardia, Hypokalemia Disposition: Admitted As Inpatient Condition: Fair Referrals: NONE,PCP [Primary Care Provider] - Forms: ED Satisfaction Letter Time of Disposition: 22:33 General Adult HPI - General Chief complaint: ED Psychiatric Symptoms Stated complaint: anxiety Time Seen by Provider: 01/07/19 19:20 Source: patient, EMS Mode of arrival: EMS Limitations: no limitations Nursing Notes Reviewed: Yes Vital Signs Reviewed: Yes - History of Present Illness Pain Scale: 4 - Related Data Home Medications Medication Instructions Recorded Confirmed Dextroamphetamine/Amphetamine 40 mg PO DAILY 03/05/18 03/05/18 [Adderall Xr 20 mg Capsule] LORazepam [Ativan] 1 mg PO HS PRN 03/05/18 03/05/18 Norgestimate-Ethinyl Estradiol 1 tab PO DAILY 03/05/18 03/05/18 [Ortho-Cyclen 28 Tablet] Previous Rx's Medication Instructions Recorded Ibuprofen [Motrin] 600 mg PO Q6HR PRN #40 tab 03/05/18 Allergies Allergy/AdvReac Type Severity Reaction Status Date / Time ethinyl estradiol AdvReac See Verified 03/05/18 14:02 [From NuvaRing] Comments etonogestrel [From NuvaRing] AdvReac See Verified 03/05/18 14:02 Comments Constitutional: Denies: fever, chills ENT ED: Denies: congestion Cardiovascular: Reports: chest pain, palpitations. Denies: dyspnea on exertion, syncope Respiratory: Denies: cough, dyspnea, wheezes Gastrointestinal: Denies: abdominal pain, nausea, vomiting Genitourinary: Denies: dysuria Musculoskeletal: Denies: back pain Integumentary: Denies: rash Neurological: Reports: as per HPI. Denies: headache Psychiatric: Reports: anxiety, depression. Denies: suicidal thoughts, homicidal thoughts, auditory hallucinations, visual hallucinations Endocrine: Denies: fatigue Hematological/Lymphatic: Denies: easy bleeding Past Medical History - Past Medical History Medical history: Reports: kidney stones Surgical history: Reports: appendectomy, other Psychiatric history: Reports: anxiety, ADHD [employer] history: Reports: ectopic , polycystic ovary syndrome - Social History Smoking Status: Current every day smoker Smokeless Tobacco Status: No Alcohol use: Reports: occasionally Drug use: Reports: none Physical Exam - General Limitations: no limitations General appearance: anxious Course Vital Signs Temperature 98.4 F 01/07/19 19:22 Pulse Rate 127 01/07/19 19:22 Respiratory Rate 60 01/07/19 19:22 Blood Pressure 127/100 01/07/19 19:22 O2 Sat by Pulse Oximetry 99 01/07/19 19:22 Temperature 98.4 F 01/07/19 19:22 Pulse Rate 127 01/07/19 20:22 Respiratory Rate 18 01/07/19 20:22 Blood Pressure 129/88 01/07/19 20:22 O2 Sat by Pulse Oximetry 94 01/07/19 20:22 Oxygen Delivery Oxygen Delivery Room Air Medical Decision Making - Lab Data Result diagrams: 01/07/19 18:48 01/07/19 18:48 Lab Results 01/07/19 01/07/19 01/07/19 Range/Units 18:48 18:48 18:48 WBC 13.0 H (4.3-11.1) K/mcL RBC 4.26 (3.82-4.97) M/mcL Hgb 15.2 (11.5-15.4) g/dL Hct 42.2 (35.3-44.9) % MCV 99.1 (83.0-100.0) fL MCH 35.7 H (28.0-33.3) pg MCHC 36.0 H (31.6-35.5) g/dL RDW 12.4 (11.5-14.5) % Plt Count 262 (140-400) K/mcL MPV 9.3 L (9.4-12.4) fL Immature Gran % 0.5 (0-4) % Seg Neutrophils % 44.4 % Lymphocytes % 45.8 % Monocytes % 5.8 % Eosinophils % 2.9 % Basophils % 0.6 % Neutrophils # 5.8 (1.6-8.9) K/mcL Lymphocytes # 5.9 H (0.6-4.6) K/mcL Monocytes # 0.8 (0.0-1.3) K/mcL Eosinophils # 0.4 (0.0-0.6) K/mcL Basophils # 0.1 (0.0-0.2) K/mcL Sample Site ABG pH (7.32-7.45) pH Units ABG pCO2 (35-45) mmHg ABG pO2 (85-104) mmHg ABG HCO3 (21-27) mEq/L ABG Total CO2 (20-26) mEq/L ABG O2 Saturation (95-98) % ABG Base Excess (-2 to 3) mEq/L López Test Blood Gas Modality Inspired O2 (1-15=lpm uc75-240=%) Sodium 140 (136-145) mEq/L Potassium 2.8 L (3.5-5.1) mEq/L Chloride 108 H (98-107) mEq/L Carbon Dioxide 14 L (23-29) mEq/L BUN 4 L (6-20) mg/dL Creatinine 0.61 (0.60-1.20) mg/dL Est GFR ( Amer) > 60 (> 60) Est GFR (Non-Af Amer) > 60 (> 60) BUN/Creatinine Ratio 7 (6-26) Glucose 106 H (70-105) mg/dL POC Glucose (70-99) mg/dL Calculated Osmolality 287 (280-300) Calcium 9.0 (8.6-10.3) mg/dL Magnesium 1.9 (1.6-2.6) mg/dL Total Bilirubin 0.4 (0.3-1.0) mg/dL Direct Bilirubin 0.1 (0.0-0.2) mg/dL Indirect Bilirubin 0.3 (0.0-1.2) mg/dL AST 32 (13-39) Units/L ALT 40 (7-52) Units/L Alkaline Phosphatase 44 (34-104) Units/L Ammonia 40 (16-53) mcmol/L Creatine Kinase 75 (30-223) Units/L Troponin I < 0.03 (< 0.04) ng/mL Serum Total Protein 7.0 (6.4-8.9) g/dL Albumin 4.4 (3.5-5.7) g/dL Globulin 2.6 (2.4-3.5) g/dL Albumin/Globulin Ratio 1.7 (1.1-2.2) TSH 5.587 (0.340-5.600) mcIU/mL Urine Color (Yellow) Urine Clarity (Clear) Urine pH (5.0-8.0) pH Units Ur Specific [place] (1.010-1.025) Urine Protein (Neg-Trace) mg/dL Urine Glucose (UA) (Normal) mg/dL Urine Ketones (Negative) mg/dL Urine Blood (Negative) Urine Nitrite (Negative) Urine Bilirubin (Negative) Urine Urobilinogen (Normal) mg/dL Ur Leukocyte Esterase (Negative) Urine Microscopic RBC (0-3) per hpf Urine Microscopic WBC (0-3) per hpf Ur Squamous Epith Cells (None-Few) per lpf Urine Bacteria (None-Few) per hpf Hyaline Casts (None-Few) per lpf Ur Culture Indicated? (NO) Urine Opiates Screen (Xsxzwr=371) ng/mL Ur Buprenorphine Scrn (Cutoff=5) ng/mL Ur Barbiturates Screen (Ctdokx=936) ng/mL Ur Phencyclidine Scrn (Cutoff=25) ng/mL Ur Amphetamines Screen (Urspew=1124) ng/mL U Benzodiazepines Scrn (Aroxtb=040) ng/mL Urine Cocaine Screen (Cutoff= 300) ng/mL U Marijuana (THC) Screen (Cutoff = 50) ng/mL Ur Drug Screen Interp Ethyl Alcohol 143 H (Less than 10) mg/dL 01/07/19 01/07/19 01/07/19 Range/Units 19:32 20:35 20:35 WBC (4.3-11.1) K/mcL RBC (3.82-4.97) M/mcL Hgb (11.5-15.4) g/dL Hct (35.3-44.9) % MCV (83.0-100.0) fL MCH (28.0-33.3) pg MCHC (31.6-35.5) g/dL RDW (11.5-14.5) % Plt Count (140-400) K/mcL MPV (9.4-12.4) fL Immature Gran % (0-4) % Seg Neutrophils % % Lymphocytes % % Monocytes % % Eosinophils % % Basophils % % Neutrophils # (1.6-8.9) K/mcL Lymphocytes # (0.6-4.6) K/mcL Monocytes # (0.0-1.3) K/mcL Eosinophils # (0.0-0.6) K/mcL Basophils # (0.0-0.2) K/mcL Sample Site ABG pH (7.32-7.45) pH Units ABG pCO2 (35-45) mmHg ABG pO2 (85-104) mmHg ABG HCO3 (21-27) mEq/L ABG Total CO2 (20-26) mEq/L ABG O2 Saturation (95-98) % ABG Base Excess (-2 to 3) mEq/L López Test Blood Gas Modality Inspired O2 (1-15=lpm dg54-650=%) Sodium (136-145) mEq/L Potassium (3.5-5.1) mEq/L Chloride (98-107) mEq/L Carbon Dioxide (23-29) mEq/L BUN (6-20) mg/dL Creatinine (0.60-1.20) mg/dL Est GFR ( Amer) (> 60) Est GFR (Non-Af Amer) (> 60) BUN/Creatinine Ratio (6-26) Glucose (70-105) mg/dL POC Glucose 103 H (70-99) mg/dL Calculated Osmolality (280-300) Calcium (8.6-10.3) mg/dL Magnesium (1.6-2.6) mg/dL Total Bilirubin (0.3-1.0) mg/dL Direct Bilirubin (0.0-0.2) mg/dL Indirect Bilirubin (0.0-1.2) mg/dL AST (13-39) Units/L ALT (7-52) Units/L Alkaline Phosphatase (34-104) Units/L Ammonia (16-53) mcmol/L Creatine Kinase (30-223) Units/L Troponin I (< 0.04) ng/mL Serum Total Protein (6.4-8.9) g/dL Albumin (3.5-5.7) g/dL Globulin (2.4-3.5) g/dL Albumin/Globulin Ratio (1.1-2.2) TSH (0.340-5.600) mcIU/mL Urine Color Yellow (Yellow) Urine Clarity Clear (Clear) Urine pH 6.5 (5.0-8.0) pH Units Ur Specific [place] 1.010 (1.010-1.025) Urine Protein Negative (Neg-Trace) mg/dL Urine Glucose (UA) Normal (Normal) mg/dL Urine Ketones Trace H (Negative) mg/dL Urine Blood Trace H (Negative) Urine Nitrite Negative (Negative) Urine Bilirubin Negative (Negative) Urine Urobilinogen Normal (Normal) mg/dL Ur Leukocyte Esterase Negative (Negative) Urine Microscopic RBC 0-3 (0-3) per hpf Urine Microscopic WBC 0-3 (0-3) per hpf Ur Squamous Epith Cells Moderate H (None-Few) per lpf Urine Bacteria None Seen (None-Few) per hpf Hyaline Casts None Seen (None-Few) per lpf Ur Culture Indicated? NO (NO) Urine Opiates Screen Negative (Iifvth=260) ng/mL Ur Buprenorphine Scrn Negative (Cutoff=5) ng/mL Ur Barbiturates Screen Negative (Kcsamw=071) ng/mL Ur Phencyclidine Scrn Negative (Cutoff=25) ng/mL Ur Amphetamines Screen Positive H (Cahslr=1064) ng/mL U Benzodiazepines Scrn Negative (Vgqjyh=653) ng/mL Urine Cocaine Screen Negative (Cutoff= 300) ng/mL U Marijuana (THC) Screen Negative (Cutoff = 50) ng/mL Ur Drug Screen Interp See Below Ethyl Alcohol (Less than 10) mg/dL 01/07/19 Range/Units 20:50 WBC (4.3-11.1) K/mcL RBC (3.82-4.97) M/mcL Hgb (11.5-15.4) g/dL Hct (35.3-44.9) % MCV (83.0-100.0) fL MCH (28.0-33.3) pg MCHC (31.6-35.5) g/dL RDW (11.5-14.5) % Plt Count (140-400) K/mcL MPV (9.4-12.4) fL Immature Gran % (0-4) % Seg Neutrophils % % Lymphocytes % % Monocytes % % Eosinophils % % Basophils % % Neutrophils # (1.6-8.9) K/mcL Lymphocytes # (0.6-4.6) K/mcL Monocytes # (0.0-1.3) K/mcL Eosinophils # (0.0-0.6) K/mcL Basophils # (0.0-0.2) K/mcL Sample Site R Radial ABG pH 7.40 (7.32-7.45) pH Units ABG pCO2 33 L (35-45) mmHg ABG pO2 81 L (85-104) mmHg ABG HCO3 20 L (21-27) mEq/L ABG Total CO2 21 (20-26) mEq/L ABG O2 Saturation 96 (95-98) % ABG Base Excess -4 L (-2 to 3) mEq/L López Test Positive Blood Gas Modality RA Inspired O2 21.0 (1-15=lpm vu09-538=%) Sodium (136-145) mEq/L Potassium (3.5-5.1) mEq/L Chloride (98-107) mEq/L Carbon Dioxide (23-29) mEq/L BUN (6-20) mg/dL Creatinine (0.60-1.20) mg/dL Est GFR ( Amer) (> 60) Est GFR (Non-Af Amer) (> 60) BUN/Creatinine Ratio (6-26) Glucose (70-105) mg/dL POC Glucose (70-99) mg/dL Calculated Osmolality (280-300) Calcium (8.6-10.3) mg/dL Magnesium (1.6-2.6) mg/dL Total Bilirubin (0.3-1.0) mg/dL Direct Bilirubin (0.0-0.2) mg/dL Indirect Bilirubin (0.0-1.2) mg/dL AST (13-39) Units/L ALT (7-52) Units/L Alkaline Phosphatase (34-104) Units/L Ammonia (16-53) mcmol/L Creatine Kinase (30-223) Units/L Troponin I (< 0.04) ng/mL Serum Total Protein (6.4-8.9) g/dL Albumin (3.5-5.7) g/dL Globulin (2.4-3.5) g/dL Albumin/Globulin Ratio (1.1-2.2) TSH (0.340-5.600) mcIU/mL Urine Color (Yellow) Urine Clarity (Clear) Urine pH (5.0-8.0) pH Units Ur Specific [place] (1.010-1.025) Urine Protein (Neg-Trace) mg/dL Urine Glucose (UA) (Normal) mg/dL Urine Ketones (Negative) mg/dL Urine Blood (Negative) Urine Nitrite (Negative) Urine Bilirubin (Negative) Urine Urobilinogen (Normal) mg/dL Ur Leukocyte Esterase (Negative) Urine Microscopic RBC (0-3) per hpf Urine Microscopic WBC (0-3) per hpf Ur Squamous Epith Cells (None-Few) per lpf Urine Bacteria (None-Few) per hpf Hyaline Casts (None-Few) per lpf Ur Culture Indicated? (NO) Urine Opiates Screen (Bqeaoz=989) ng/mL Ur Buprenorphine Scrn (Cutoff=5) ng/mL Ur Barbiturates Screen (Fqpwpt=786) ng/mL Ur Phencyclidine Scrn (Cutoff=25) ng/mL Ur Amphetamines Screen (Eopdda=2156) ng/mL U Benzodiazepines Scrn (Jnkmvk=725) ng/mL Urine Cocaine Screen (Cutoff= 300) ng/mL U Marijuana (THC) Screen (Cutoff = 50) ng/mL Ur Drug Screen Interp Ethyl Alcohol (Less than 10) mg/dL Attestation Statement - Attestation Attestation: I have seen this patient with the resident physician, I have personally evalu ated this patient. I had reviewed the chart and document dictation by the resident physician and aM in agreement with the information documented by the resident physician. Please see documentation by the resident physician for complete chart including past medical history, family medical history, review of systems, current history and physical and laboratory and imaging studies. I was present for all procedures, provided direct supervision for all procedures, was present for the entirety of all procedures and provided direct guidance during the procedures. Please see documentation by the resident physician for any procedures performed. I have reviewed all interpretations of EKGs, and reviewed all EKGs performed on patient's as well. I have also reviewed reports of imaging as provided by radiology. Patient presented emergency department with severe anxiety and pleuritic chest pain and shortness of breath, unclear as to exactly when this started, she reports her family called the paramedics but she did not she states something is wrong and she does not know what it is. The patient is a very poor historian secondary to persistent severe anxiety type of reaction she is breathing roughly 60 times a minute, tachycardic with a heart rate in the 140s, and has obvious carpal pedal spasm significant in nature secondary to her rapid hyperventilation. She was however answer questions she is seemingly denying any headache she states something is wrong she states this is not like her anxiety she does take medications for anxiety sometimes but has not taken anything in a couple of weeks. She denies any street drug use. She does take Adderall. She did not take an excessive amount of this. She denies recent travels or immobilization with pain or leg swelling. On arrival with her initial significant hyperventilation she then has a brief episode where she almost becomes catatonic and stops responding to us but has no change in her vital signs apart from a slight slowing of her respiratory rate, I believe this was most likely related to profound hyperventilation. She was given Ativan and IV fluids and had significant improvement of her symptoms and relaxed and calm down. She underwent a head CT that showed no acute findings. Basic laboratory studies were all within acceptable limits except for hypokalemia of 2.8 which was supplemented. EKG was a sinus rhythm sinus tachycardia, nonspecific ST-T wave abnormality, no evidence of ST elevation, question some heart strain. Heart rate significant improved with Ativan and fluids down to 105. CT PE protocol was ordered secondary to her complaining of chest pain shortness of breath, with tachycardia and anxiety. This demonstrated a left upper lobe pulmonary embolism. Patient was started on IV heparin drip and bolus protocol, and was admitted to the hospital for further evaluation and management of pulmonary embolism. No indication for TPA, vital signs normalizing, cardiac enzymes negative, no hypoxia and no hypotension and improving tachycardia. Total critical care time as provided by myself excluding any procedures performed was 30 minutes.
[2019-01-07 22:51] LABS: Hematocrit 39.7 % (35.3-44.9); Hemoglobin 14.1 g/dL (11.5-15.4); Immature Platelets 1.8 % (1.1-6.1); Mean Corpuscular HGB Conc 35.5 g/dL (31.6-35.5); Mean Corpuscular Hemoglobin 34.8 pg (28.0-33.3); Mean Platelet Volume 9.2 fL (9.4-12.4); Red Blood Count 4.05 M/mcL (3.82-4.97); Red Cell Distribution Width 12.3 % (11.5-14.5); White Blood Count 8.6 K/mcL (4.3-11.1)
[2019-01-07 22:58] LABS: Prothrombin Time 11.9 Seconds (9.4-12.1)
[2019-01-07 23:09] LABS: Heparin anti-factor XA UFH 0.01 IU/mL (0.30-0.70)
[2019-01-08] MEDS ORDERED: Naloxone 0.4 MG/ML INJ IVP PRN (01:28)
[2019-01-08] MEDS ORDERED: Acetaminophen 325 MG TABLET PO PRN (01:28)
[2019-01-08] MEDS ORDERED: Ondansetron 4 MG/2 ML VIAL IVP PRN (01:28)
[2019-01-08] MEDS ORDERED: 0.9 % Sodium Chloride 1,000 ML IVC SCH (01:30)
[2019-01-08] MEDS ORDERED: *HR* LORazepam 2 MG/ML VIAL IVP PRN (04:28)
--- NOTE | 2019-01-08 04:33 | Internal Med History&Physical ---
Date of Encounter: 01/08/19 Time of Encounter: 04:33 Internal Medicine - H&P: HPI Chief complaint: AMS History of present illness: Ms. Davies is a 28 year old female with a past medical history of kidney stones, anxiety and depression who presented to the ED due to altered mentation. Patient reports that earlier today while preparing a meal in the kitchen she developed tightness in her chest associated with a sensation that her heart was racing and suddenly collapsed to the floor. Patient does not believe that she hit her head or loss consciousness. Patient family found her on the floor and called EMS. Per ED assessment, upon arrival, patient had difficulty speaking secondary to feeling short of breath and the chest pain, she was noted to have her arms locked to her side, and her toes were curled. Patient states that this is never happened to her before. Denies any history of seizures. Patient does report that she is under a lot of stress. Patient denies any tobacco or illicit drug use. She reports that she does not drink alcohol stated that she had some recently. Her primary care provider recently increased her Adderall dose from 20-25 mg. While in the ED, patient was noted to be tachycardic and tachypneic. Patient was reported to have multiple additional episodes where she would stare off into space and not respond to questioning. During one of these episodes ED resident assessed her ciliary response by making contact with the patient's eyeball. Patient did not respond. However when she came out of these episodes a few moments later, she states that she did recall everything including contact of her eye but was unable to verbalize anything at the time. On initial assessment patient was afebrile, mildly hypertensive and tachycardic in the 120s to 130s. Laboratory workup was notable for mild hypokalemia with a potassium of 2.8. Urine toxicology positive for amphetamines and patient's serum alcohol level was elevated at 143. Due to the patient's tachycardia/tachypnea a CTA was obtained which showed a embolism within the pulmonary artery supplying the anterior segment of the left upper lobe. Radiology discussed findings with ED resident and reported no evidence of right heart strain. Patient admitted for evaluation of seizures and PE. On my assessment patient was tearful and wanted to leave AMA. She stated that her daughter in a similar room here at the hospital in the [facility] and was having PTSD as a result. I was able to calm the patient down and reassure her that we would help her get through this and that it was imperative that she remain for PE. Patient agreed. Past Med Surg Social Fam HX - Past Medical History Medical history: kidney stones Additional medical history: POS, A/D, ADD Psychiatric history: anxiety, ADHD - Past Surgical History Surgical History: thyroidectomy Additional surgical history: adenoidectopy, uterine polyps, colonoscopy, nasal septum repair, ectopic (right fallopian tube removed) - Social History Smoking Status: Current every day smoker Packs per day: 1.5 Smokeless Tobacco Status: No Alcohol use: occasionally, recent Drug use: none - Family History Father Living Status: Still Living Hx Family Cardiac Disorders: Yes (HTN) Mother Adopted: No Family Member Ethnicity: Non- Living Status: Still Living Hx Family Cardiac Disorders: No Hx Family Respiratory Disorders: No Hx Family Cancer: No Hx Family GI Disorders: No Hx Family Endocrine Disorder: No Hx Family Neuromuscular Disorders: No Hx Family Neurologic Disorders: No Hx Family HEENT Disorders: No Hx Family Autoimmune Disorders: No Hx Family Psychosocial Disorders: Yes (SCHIZOPHRENIC BORDERLINE) Internal Medicine - H&P: Meds Dextroamphetamine/Amphetamine [Adderall Xr 20 mg Capsule] 25 mg PO 0600 03/05/18 [History] LORazepam [Ativan] 1 mg PO HS PRN 03/05/18 [History] Dextroamphetamine/Amphetamine [Adderall 20 mg Tablet] 20 mg PO DAILY 01/08/19 [History] Allergy/AdvReac Type Severity Reaction Status Date / Time ethinyl estradiol AdvReac See Verified 03/05/18 14:02 [From NuvaRing] Comments etonogestrel [From NuvaRing] AdvReac See Verified 03/05/18 14:02 Comments All Systems PM: A 10-system review of systems was performed and is negative for pertinent findings except as documented above in the HPI. - Constitutional Vitals: Temp Pulse Resp BP Pulse Ox 98.2 F 87 17 132/99 97 01/08/19 01:58 01/08/19 01:58 01/08/19 01:58 01/08/19 01:58 01/08/19 02:21 Exam: General: Alert and oriented Skin:Normal color, no rash, no lesions. HEENT:EOM, pupils equal, round and reactive. Cardiovascular:Normal S1 & S2, no rubs, murmurs or gallops. No JVD. Pulse regular. Lungs:Normal breath sounds, no wheezes or crackles. Abdomen:Soft, non-tender, no rigidity. Extremities: Left lower extremity greater in size and right; no edema Neurological:Normal cognition and motor skills. Pulses:Carotid and radial pulses normal +2. Rest of the physical exam is non contributory Internal Med - H&P Results - Labs CBC & Chem 7: 01/08/19 05:13 01/08/19 05:13 Labs: Short CBC 01/07/19 01/07/19 Range/Units 18:48 22:44 WBC 13.0 H 8.6 (4.3-11.1) K/mcL Hgb 15.2 14.1 (11.5-15.4) g/dL Hct 42.2 39.7 (35.3-44.9) % Plt Count 262 247 (140-400) K/mcL Neutrophils # 5.8 (1.6-8.9) K/mcL BMP 01/07/19 18:48 Sodium 140 Potassium 2.8 L Chloride 108 H Carbon Dioxide 14 L BUN 4 L Creatinine 0.61 Glucose 106 H Calcium 9.0 Cardiac Enzymes 01/07/19 Range/Units 18:48 Troponin I < 0.03 (< 0.04) ng/mL Liver Function 01/07/19 Range/Units 18:48 Total Bilirubin 0.4 (0.3-1.0) mg/dL Direct Bilirubin 0.1 (0.0-0.2) mg/dL AST 32 (13-39) Units/L ALT 40 (7-52) Units/L Alkaline Phosphatase 44 (34-104) Units/L Albumin 4.4 (3.5-5.7) g/dL Urine 01/07/19 Range/Units 20:35 Urine Color Yellow (Yellow) Urine Clarity Clear (Clear) Urine pH 6.5 (5.0-8.0) pH Units Ur Specific [place] 1.010 (1.010-1.025) Urine Protein Negative (Neg-Trace) mg/dL Urine Glucose (UA) Normal (Normal) mg/dL - ABG Interpretation ABG results: 01/07/19 20:50 ABG pH 7.40 ABG pCO2 33 L ABG pO2 81 L ABG HCO3 20 L ABG Total CO2 21 ABG O2 Saturation 96 ABG Base Excess -4 L - Impressions ITS Impressions Chest X-Ray 01/07/19 19:34 IMPRESSION: Bibasilar atelectasis or scarring. D/ / Dania Wiley Cha, MD / Dania Wiley Cha, MD Interpreting Provider: Dania Wiley Cha, MD Chest CTA 01/07/19 19:35 IMPRESSION: Embolism within the pulmonary artery supplying the anterior segment of left upper lobe. Findings were discussed with Lesli Pacheco at 10:03 pm on 01/07/2019. D/ / Dania Wiley Cha, MD / Dania Wiley Cha, MD Interpreting Provider: Dania Wiley Cha, MD Head CT 01/07/19 19:35 IMPRESSION: No acute intracranial abnormality. D/ / Dania Wiley Cha, MD / Dania Wiley Cha, MD Interpreting Provider: Dania Wiley Cha, MD - Assessment and Plan (1) Altered mental status, unspecified Current Visit: Yes Status: Acute Assessment and plan: Patient presenting with severe anxiety, tachycardia and hyperventilation. While in the ED she was noted to have brief episodes where she will become catatonic staring off into space and unresponsive to verbal or tactile stimulation. Patient has no prior history of seizures. Agree with the ED assessment that these episodes may be secondary to hyperventilation which subsequently improved after administration of IV fluids and Ativan. CT scan of the head showed no acute findings. Patient currently at baseline though remains emotional. Denies any prior history of seizures. -Seizure precautions -Ativan PRN -We will obtain EEG to assess for seizures -Given patient's severe anxiety and PTSD, consider psychiatry consult Qualifiers: Altered mental status type: unspecified Qualified Code(s): R41.82 - Altered mental status, unspecified (2) Acute pulmonary embolus Current Visit: Yes Status: Acute Assessment and plan: Patient presenting with sinus tachycardia in the setting of possible syncopal episode. CTA of the chest shows embolism within the pulmonary artery supplying the anterior segment of the left upper lobe which appears to be unprovoked as patient denies any recent travel, OCP use, recent surgery, or cancer history. No indication for TPA; no evidence of hypotension, cardiac enzymes negative. No evidence of right heart strain. Patient does appear to have a discrepancy with left lower extremity slightly larger than right which could potentially be her source of DVT. -Continue heparin drip -Discuss anticoagulation options moving forward. -Consider venous ultrasound of the lower extremities for DVT. Although will not alter management. Qualifiers: Pulmonary embolism type: unspecified Acute cor pulmonale presence: without acute cor pulmonale Qualified Code(s): I26.99 - Other pulmonary embolism without acute cor pulmonale (3) Hypokalemia Current Visit: Yes Status: Acute Assessment and plan: Potassium 2.8 on arrival. Patient given potassium in the ED. Currently 3.7. - Time Spent With Patient Total time spent is greater than 50% in coordination of care (as documented) at patient's floor/unit and/or counseling patient:
[2019-01-08 05:38] LABS: Basophils # 0.1 K/mcL (0.0-0.2); Basophils % 0.7 %; Eosinophils # 0.3 K/mcL (0.0-0.6); Eosinophils % 3.3 %; Hematocrit 38.7 % (35.3-44.9); Hemoglobin 13.7 g/dL (11.5-15.4); Immature Granulocytes % 0.5 % (0-4); Lymphocytes # 4.3 K/mcL (0.6-4.6); Lymphocytes % 44.5 %; Mean Corpuscular HGB Conc 35.4 g/dL (31.6-35.5); Mean Corpuscular Hemoglobin 35.1 pg (28.0-33.3); Mean Corpuscular Volume 99.2 fL (83.0-100.0); Mean Platelet Volume 9.5 fL (9.4-12.4); Monocytes # 0.5 K/mcL (0.0-1.3); Monocytes % 5.5 %; Neutrophils # 4.3 K/mcL (1.6-8.9); Platelet Count 241 K/mcL (140-400); Red Cell Distribution Width 12.7 % (11.5-14.5); Segmented Neutrophils % 45.5 %; White Blood Count 9.6 K/mcL (4.3-11.1)
[2019-01-08 05:52] LABS: INR 1.1; Prothrombin Time 12.3 Seconds (9.4-12.1)
[2019-01-08 06:15] LABS: Alanine Aminotransferase 35 Units/L (7-52); Albumin 3.8 g/dL (3.5-5.7); Albumin/Globulin Ratio 1.7 (1.1-2.2); Alkaline Phosphatase 37 Units/L (34-104); Aspartate Amino Transferase 28 Units/L (13-39); BUN/Creatinine Ratio 8 (6-26); Bilirubin,Total 0.4 mg/dL (0.3-1.0); Blood Urea Nitrogen 4 mg/dL (6-20); Calcium 8.2 mg/dL (8.6-10.3); Carbon Dioxide 21 mEq/L (23-29); Chloride 107 mEq/L (98-107); Globulin 2.2 g/dL (2.4-3.5); Glucose 100 mg/dL (70-105); Osmolality,Calculated 287 (280-300); Potassium 3.7 mEq/L (3.5-5.1); Sodium 140 mEq/L (136-145); Troponin I 0.03 ng/mL (< 0.04); eGFR For African Americans > 60 (> 60); eGFR For Non-African Americans > 60 (> 60)
[2019-01-08 06:22] LABS: Activated Partial Thrombo Time 130.2 Seconds (26.0-36.0)
--- NOTE | 2019-01-08 09:49 | Neurology - Consult Note ---
<Dusty Gutierrez J - Last Filed: 01/08/19 12:48> Date of Encounter: 01/08/19 Time of Encounter: 09:38 Assessment and Plan (1) Seizures Current Visit: Yes Status: Acute Patient admitted for PE Neurology consulted with concerns for seizures On admission she was witnessed to have an unresponsive episode with staring spells and negative ciliary response on exam in the ED by the ED physician The patient reports this happened approximately 2 more times yesterday throughout the evening She denies having any tongue bite, urinary or fecal incontinence. Further, she denies any family history or personal history of seizures However, she does endorse alcohol abuse drinking 8-12 alcoholic beverages daily or a bottle of wine daily Ethanol alcohol was positive at 143; I suspect that she may be having seizures due to alcohol abuse Was also hypokalemic with potassium of 2.8 now corrected at 3.7 At this time we will obtain an EEG and an MRI of the brain Recommending seizure precautions in the meantime Recommending PRN Ativan for breakthrough seizures Neurological assessments per protocol Neurology will continue to follow; further recommendations pending W/U (2) Weakness Current Visit: Yes Status: Acute r/o central neurological cause vs cervical myelopathy right upper and lower extremity weakness with dysmetria Etiology unclear, however she does have positive long tract signs with hyperreflexia, and a positive Coon sign MRI brain MRI cervical spine Recommend PT/OT evaluation Further recommendations pending the rest of the w/u History of Present Illness Chief complaint: PE, versus seizures, right-sided weakness HPI: Ms. Davies is a 28 year old female with a PMH of anxiety, depression, ADHD, a lcohol abuse. She presents to [facility] after experiencing sudden collapse. While in the ED she was noticed to have an unresponsive episode and concerns for seizures. The patient and his significant other both note that she is a daily drinker consuming 8-10 beverages or a bottle of wine daily. She reports that while preparing dinner she began to have difficulty breathing, and feeling extremely weak and developed tunnel vision resulting in collapse. In the ED a CT angiogram of the chest was positive for pulmonary embolism supplying the anterior segment of the left upper lobe. Of note, while in the ED the patient had an unresponsive episode and the resident physician was not able to find a ci liary response. This is concerning for seizures. Again, as previously stated the patient does note alcohol abuse and thusly has a propensity for seizures. The patient denies any dizziness, gait dysfunction, headaches, dysphagia, dysarthria, paresthesias, focal motor weakness, sensory deficits, nausea, vomiting, diarrhea, dysuria, urinary incontinence, fecal incontinence, palpitations, extremity swelling and/or pain. She does endorse chest pain, shortness of breath and notes that she had multiple unresponsive states on the day of admission. CT of the head was unremarkable. The patient is on Adderall chronically and the UDS was positive for amphetamines. Ethyl alcohol level was 143. Otherwise the CBC and gastric panel are unremarkable. At the time of my assessment this afternoon the patient is anxious, easily agitated but cooperative with exam. She states that she has not had a return of these unresponsive events/staring spells this morning. At this juncture she is very adamant about leaving AGAINST MEDICAL ADVICE. I did discuss the risks for leaving AGAINST MEDICAL ADVICE especially in the settings of pulmonary embolism and concerns for seizures. I discussed that the risks include significant injury and/or prolonged seizures which could also result in significant injury and/or . The patient verbalizes understanding and is still very adamant about leaving AGAINST MEDICAL ADVICE. Past Med Surg Social Fam HX - Past Medical History Medical history: kidney stones Additional medical history: POS, A/D, ADD Psychiatric history: anxiety, ADHD - Past Surgical History Surgical History: thyroidectomy Additional surgical history: adenoidectopy, uterine polyps, colonoscopy, nasal septum repair, ectopic (right fallopian tube removed) - Social History Smoking Status: Current every day smoker Packs per day: 1.5 Smokeless Tobacco Status: No Alcohol use: occasionally, recent Drug use: none - Family History Father Living Status: Still Living Hx Family Cardiac Disorders: Yes (HTN) Mother Adopted: No Family Member Ethnicity: Non- Living Status: Still Living Hx Family Cardiac Disorders: No Hx Family Respiratory Disorders: No Hx Family Cancer: No Hx Family GI Disorders: No Hx Family Endocrine Disorder: No Hx Family Neuromuscular Disorders: No Hx Family Neurologic Disorders: No Hx Family HEENT Disorders: No Hx Family Autoimmune Disorders: No Hx Family Psychosocial Disorders: Yes (SCHIZOPHRENIC BORDERLINE) Medications and Allergies Dextroamphetamine/Amphetamine [Adderall Xr 20 mg Capsule] 25 mg PO 0600 03/05/18 [History] LORazepam [Ativan] 1 mg PO HS PRN 03/05/18 [History] Apixaban [Eliquis] 5 mg PO BID #70 tab.ds.pk 01/08/19 [Rx] Dextroamphetamine/Amphetamine [Adderall 20 mg Tablet] 20 mg PO DAILY 01/08/19 [History] Allergy/AdvReac Type Severity Reaction Status Date / Time ethinyl estradiol AdvReac See Verified 03/05/18 14:02 [From NuvaRing] Comments etonogestrel [From NuvaRing] AdvReac See Verified 03/05/18 14:02 Comments All Systems: The remainder of the systems were reviewed and are negative Review of Systems: REVIEW OF SYSTEMS GENERAL: Negative for any nausea, vomiting, fevers, chills NEUROLOGIC: Negative for any facial asymmetry, dysphagia, dysarthria, hemiparesis, hemisensory deficits, vertigo, ataxia, tingling, numbness, unilateral weakness or numbness/tingling Positive-staring spells with inability to respond to external stimulus, c ollapse, tunnel vision, and abnormal, rhythmic movements of the facial musculature PSYCH: Positive-agitation/irritability, anxiety HEENT: Negative for any head trauma, neck trauma, neck stiffness, photophobia, phonophobia CARDIAC: Positive-chest pain and shortness of breath GENITOURINARY: Negative for any dysuria, hematuria, incontinence. The remainder of the review of systems were reviewed and found to be negative Physical Examination - Vital Signs Vital Signs: Initial Vital Signs Temp Pulse Resp BP Pulse Ox 98.4 F 127 60 127/100 99 01/07/19 19:22 01/07/19 19:22 01/07/19 19:22 01/07/19 19:22 01/07/19 19:22 - Exam Exam: Examination: General Examination: *CONSTITUTIONAL: Alert and oriented x3, no acute distress *GENERAL APPEARANCE OF PATIENT appears healthy and well groomed *EYES: pupils equal, round, reactive to light and accommodation, conjunctiva clear *CARDIOVASCULAR: no peripheral edema, distal temperature normal, dorsalis pedis pulses normal. Refer to vital signs * MUSCULOSKELETAL: *GAIT AND STATION: Deferred *ASSESSMENT OF MUSCLE STRENGTH IN THE UPPER AND LOWER EXTREMITIES left deltoid, bicep, tricep, absorption operator strength, hip flexors ,anterior tibialis, dorsoflexion of the foot 5/5; right deltoid, bicep, tricep, absorption operator strength, hip flexors and anterior tibialis as well as dorsiflexion of the left foot are 4/5 *MUSCLE TONE IN THE UPPER AND LOWER EXTREMITIES normal. No abnormal movements, fasciculations or atrophy identified. Neurological: *ORIENTATION to person, situation, time and place *LANGUAGE AND FUNCTION no significant aphasia or dysarthia was noted. *ATTENTION AND CONCENTRATION are normal *LANGUAGE FUNCTION no significant aphasia or dysarthia was noted. *FUND OF KNOWLEDGE aware of current events, past history, vocabulary *MENTAL attention span and concentration normal. *CN II optic fundi were normal, no papilledema noted. *CN III,IV, PERRLA extraocular eye movements were full, no nystagmus and no ptosis noted. *CN V shows normal sensation and jaw opens symmetrically. *CN VII shows normal facial movement symmetrically, upper and lower bilaterally. *CN VIII shows no significant hearing loss on exam *CN IX-Xpalate elevated symmetrically *CN XI normal strength in the sternocleidomastoid muscles, symmetrical shoulder shrugging. *CN XII tongue protruded in the midline, with normal strength and movement. *SENSORY EXAMINATION light touch intact *REFLEXES: DTRs are symmetrical hyperreflexic diffusely in the bilateral biceps, brachioradialis, patellar and Achilles, she has a positive Coon's sign on the right hand *CEREBELLAR TESTING dysmetria with right finger to nose, and heel/knee/de dios *PAIN LEVEL 0/10 Results - Laboratory Findings CBC and BMP: 01/08/19 05:13 01/08/19 05:13 Abnormal lab findings: Abnormal lab results WBC 13.0 K/mcL (4.3-11.1) H 01/07/19 18:48 MCH 35.1 pg (28.0-33.3) H 01/08/19 05:13 MCHC 36.0 g/dL (31.6-35.5) H 01/07/19 18:48 MPV 9.2 fL (9.4-12.4) L 01/07/19 22:44 Lymphocytes # 5.9 K/mcL (0.6-4.6) H 01/07/19 18:48 PT 12.3 Seconds (9.4-12.1) H 01/08/19 05:13 APTT 130.2 Seconds (26.0-36.0) H* 01/08/19 05:13 Heparin Anti-Xa, Unfract 0.01 IU/mL (0.30-0.70) L 01/07/19 22:44 ABG pCO2 33 mmHg (35-45) L 01/07/19 20:50 ABG pO2 81 mmHg (85-104) L 01/07/19 20:50 ABG HCO3 20 mEq/L (21-27) L 01/07/19 20:50 ABG Base Excess -4 mEq/L (-2 to 3) L 01/07/19 20:50 Potassium 2.8 mEq/L (3.5-5.1) L 01/07/19 18:48 Chloride 108 mEq/L (98-107) H 01/07/19 18:48 Carbon Dioxide 21 mEq/L (23-29) L 01/08/19 05:13 BUN 4 mg/dL (6-20) L 01/08/19 05:13 Creatinine 0.53 mg/dL (0.60-1.20) L 01/08/19 05:13 Glucose 106 mg/dL (70-105) H 01/07/19 18:48 POC Glucose 103 mg/dL (70-99) H 01/07/19 19:32 Calcium 8.2 mg/dL (8.6-10.3) L 01/08/19 05:13 Serum Total Protein 6.0 g/dL (6.4-8.9) L 01/08/19 05:13 Globulin 2.2 g/dL (2.4-3.5) L 01/08/19 05:13 Urine Ketones Trace mg/dL (Negative) H 01/07/19 20:35 Urine Blood Trace (Negative) H 01/07/19 20:35 Ur Squamous Epith Cells Moderate per lpf (None-Few) H 01/07/19 20:35 Ur Amphetamines Screen Positive ng/mL (Imeknj=[id number]) H 01/07/19 20:35 Ethyl Alcohol 143 mg/dL (Less than 10) H 01/07/19 18:48 - Diagnostic Findings Additional findings: CT/CT head/brain wo con IMPRESSION: No acute intracranial abnormality. Consult Discharge Plan - Plan Instructions: Pulmonary Embolism (DC) Referrals: NONE,PCP [Primary Care Provider] - Prescriptions: Apixaban [Eliquis] 5 mg PO BID #70 tab.ds.pk <Gaby Haynes I - Last Filed: 01/08/19 15:34> Date of Encounter: 01/08/19 Assessment and Plan (1) Seizures Current Visit: Yes Status: Acute I have personally performed a face to face diagnostic evaluation, including HPI, EXAM, which is included in the Assesment and plan, which was discussed with Dusty Gutierrez CNP, I agree with the above outlined documentation. Concern of his seizure but at this time even if it is a seizure in the clinical context of elevated alcoholic level would not recommend any antiepileptic medication, I did not see any significant focal findings on her neurological examination except some mild giveaway weakness on the right side May do an MRI of the brain or perhaps cervical spine to exclude any intracranial or extracranial abnormality EEG probably would not be helpful Patient should be on withdrawal precautions She would also benefit from psychiatric evaluation for underlying anxiety . Discussed with the patient and the was present at the bedside Gaby Haynes MD. NeurologyI (2) Weakness Current Visit: Yes Status: Acute History of Present Illness HPI: Ms. Davies is a 28 year old female All Systems: The remainder of the systems were reviewed and are negative Physical Examination - Vital Signs Vital Signs: Initial Vital Signs Temp Pulse Resp BP Pulse Ox 98.4 F 127 60 127/100 99 01/07/19 19:22 01/07/19 19:22 01/07/19 19:22 01/07/19 19:22 01/07/19 19:22 Results - Laboratory Findings CBC and BMP: 01/08/19 05:13 01/08/19 05:13 Abnormal lab findings: Abnormal lab results WBC 13.0 K/mcL (4.3-11.1) H 01/07/19 18:48 MCH 35.1 pg (28.0-33.3) H 01/08/19 05:13 MCHC 36.0 g/dL (31.6-35.5) H 01/07/19 18:48 MPV 9.2 fL (9.4-12.4) L 01/07/19 22:44 Lymphocytes # 5.9 K/mcL (0.6-4.6) H 01/07/19 18:48 PT 12.3 Seconds (9.4-12.1) H 01/08/19 05:13 APTT 130.2 Seconds (26.0-36.0) H* 01/08/19 05:13 Heparin Anti-Xa, Unfract 0.01 IU/mL (0.30-0.70) L 01/07/19 22:44 ABG pCO2 33 mmHg (35-45) L 01/07/19 20:50 ABG pO2 81 mmHg (85-104) L 01/07/19 20:50 ABG HCO3 20 mEq/L (21-27) L 01/07/19 20:50 ABG Base Excess -4 mEq/L (-2 to 3) L 01/07/19 20:50 Potassium 2.8 mEq/L (3.5-5.1) L 01/07/19 18:48 Chloride 108 mEq/L (98-107) H 01/07/19 18:48 Carbon Dioxide 21 mEq/L (23-29) L 01/08/19 05:13 BUN 4 mg/dL (6-20) L 01/08/19 05:13 Creatinine 0.53 mg/dL (0.60-1.20) L 01/08/19 05:13 Glucose 106 mg/dL (70-105) H 01/07/19 18:48 POC Glucose 103 mg/dL (70-99) H 01/07/19 19:32 Calcium 8.2 mg/dL (8.6-10.3) L 01/08/19 05:13 Serum Total Protein 6.0 g/dL (6.4-8.9) L 01/08/19 05:13 Globulin 2.2 g/dL (2.4-3.5) L 01/08/19 05:13 Urine Ketones Trace mg/dL (Negative) H 01/07/19 20:35 Urine Blood Trace (Negative) H 01/07/19 20:35 Ur Squamous Epith Cells Moderate per lpf (None-Few) H 01/07/19 20:35 Ur Amphetamines Screen Positive ng/mL (Reheah=[id number]) H 01/07/19 20:35 Ethyl Alcohol 143 mg/dL (Less than 10) H 01/07/19 18:48
[2019-01-08 11:34] VITALS: BP 126/96
--- NOTE | 2019-01-08 14:02 | Electrocardiograph Report ---
[place] [id number] Test Date: 2019-01-07 Pat Name: Karen Davies Department: EXAM3 Room: 2N5 Gender: F Data Reduction Technician: : 1990 Requested By: Lesli Pacheco Order Number: [id number] Reading MD: Herber Lang Measurements Intervals [place] Rate: 138 P: 84 SD: 126 QRS: 94 QRSD: 89 T: -25 QT: 360 QTc: 546 Interpretive Statements Sinus tachycardia Borderline right axis deviation Borderline repolarization abnormality Prolonged QT interval Electronically Signed On 01-08-2019 14:01:17 EDT by Herber Lang
--- NOTE | 2019-01-08 14:32 | Discharge Summary ---
- NOTES TO OUTPATIENT PROVIDER Notes to Outpatient Provider: Left AMA. Follow-up with PCP and Neurology if desired as outpatient Date of Encounter: 01/08/19 Time of Encounter: 11:00 - Discharge Diagnosis (1) Acute pulmonary embolus Priority: Primary Status: Acute Qualifiers: Pulmonary embolism type: unspecified Acute cor pulmonale presence: without acute cor pulmonale Qualified Code(s): I26.99 - Other pulmonary embolism without acute cor pulmonale (2) Hypokalemia Priority: Secondary Status: Acute (3) Altered mental status, unspecified Priority: Secondary Status: Acute Qualifiers: Altered mental status type: unspecified Qualified Code(s): R41.82 - Altered mental status, unspecified Hospital course: Ms. Davies is a 28 year old female with a past medical history of kidney stones, anxiety, and depression who was admitted due to ?seizure in the setting of alcohol intoxication and L UL pulmonary embolism. Started on hep gtt. Was seen in consultation with Neurology who recommended further studies including MRI and EEG but patient adamantly requested to leave despite understanding the risk of recurrent seizure, aspiration, hypoxia, and potential . She was given a 28 day supple of Eliquis prior to levaing AMA and was advised to follow up with PCP and Neurology as outpatient. I had a [id number] encounter with the patient greater than 8 hours apart from the time of the admission. . Discharge discussed with: patient, family, nurse, corporate health consultant - Time Spent with Patient Total time spent providing and/or coordinating discharge services: 31 mins Time spent: D/C greater than 8 hours after Admission - Discharge Medications Prescriptions: New Apixaban [Eliquis] 5 mg PO BID #70 tab.ds.pk Continued LORazepam [Ativan] 1 mg PO HS PRN PRN Reason: Anxiety Dextroamphetamine/Amphetamine [Adderall Xr 20 mg Capsule] 25 mg PO 0600 Dextroamphetamine/Amphetamine [Adderall 20 mg Tablet] 20 mg PO DAILY Home Medications: Dextroamphetamine/Amphetamine [Adderall Xr 20 mg Capsule] 25 mg PO 0600 03/05/18 [History] LORazepam [Ativan] 1 mg PO HS PRN 03/05/18 [History] Apixaban [Eliquis] 5 mg PO BID #70 tab.ds.pk 01/08/19 [Rx] Dextroamphetamine/Amphetamine [Adderall 20 mg Tablet] 20 mg PO DAILY 01/08/19 [History] Allergies/Adverse Reactions: Allergy/AdvReac Type Severity Reaction Status Date / Time ethinyl estradiol AdvReac See Verified 03/05/18 14:02 [From NuvaRing] Comments etonogestrel [From NuvaRing] AdvReac See Verified 03/05/18 14:02 Comments Date of admission: 01/08/19 00:56 Primary care physician: PCP NONE Consults: 01/08/19 12:36 Consult to Interpret Exam [CONS] Routine Consulting Provider: Gaby Haynes I Consult to Interpret Exam: Interpret Sleep Study - Constitutional Vitals: Temp Pulse Resp BP Pulse Ox 98 F 77 16 126/96 96 01/08/19 07:31 01/08/19 11:31 01/08/19 11:31 01/08/19 11:31 01/08/19 11:31 Exam: General: Alert and oriented, not in acute distress. HEENT:EOMI, pupils equal, round and reactive. Cardiovascular:Normal S1 & S2, No JVD. Pulse regular. Lungs: clear to auscultation, no wheezes/rales Abdomen:Soft, non-tender, no rigidity. Extremities:No deformity or swelling Neurological:CN II-XII intact, power and sensation fully intact in all 4 limbs. No cerebellar signs, pronator drift -ve, Babinski downgoing bilaterally - Patient Status Disposition: Left Against Medical Advice Condition: Fair Functional capacity at discharge: independent ambulation Overall status at discharge: patient is progressing back to baseline - Discharge Instructions Instructions: Pulmonary Embolism (DC) Follow Up With: NONE,PCP [Primary Care Provider] -
--- NOTE | 2019-01-08 18:05 | EEG/EMG/Oth Biometrics Report ---
EEG Procedure Report EEG Procedure: Routine EEG Procedure Note: This is a routine 21 channel digital EEG performed utilizing 10- 20 international electrode placement system. FINDINGS: Patient has a predominant waking background frequency that is average voltage 8 to 10 Hertz alpha activity in the posterior region, normal amplitude symmetrical over the both hemispheres reactive to eyes opening and closing record continued to show alpha activity intermixed with some theta off and on, no abnormal activity recorded, predominantly no evidence of any spike wave discharges or any lateralizing abnormalities, Photic stimulation and hyperventilation did not produce any convulsive response. Intermittent EMG artifacts were noted. Stage II sleep was not achieved. Impression: Normal awake drowsy electroencephalogram. No epileptiform discharges or any other paroxysmal activities noted. ( Please note that normal EEG does not exclude the diagnosis of seizures or epilepsy, clinical correlation is suggested)
== END 2019-01-08 17:58 | disposition left against medical advice (07) ==
LOC: 2NENU 19:18 → EMEROOARM 19:18 → SUATTDRO 01-08 00:56 → 2NENU 01-08 01:45
PROVIDERS: ADMIT Internal Medicine; ATTEND Internal Medicine